=== PATIENT | male | born 1940 | race Caucasian/White ===

== ENCOUNTER 2024-07-23 06:23 | Day surgery (SDC) | payer OTHER ==
--- NOTE | 2024-07-21 14:30 | RAD REPORT ---
EXAMINATION: TWO VIEW CHEST XR CLINICAL INDICATION: Male, 84 years old. pre op pending hernia repair. [facility] pre op pending hernia repair TECHNIQUE: 2 views of the chest was performed. COMPARISON: No prior exam. FINDINGS: The lungs are hyperexpanded suggesting COPD. The heart is normal in size. No displaced fractures evid ent. IMPRESSION: COPD is suspected without acute finding identified.
--- NOTE | 2024-07-22 10:27 | EKG ---
Test Date: 2024-07-21 Test Time: 13:52:36 Director Software: JILL MEASUREMENT RESULTS: Intervals: Rate: 70 PA: 164 QRSD: 74 QT: 380 QTc: 410 [place]: P: 74 PA: 164 QRS: 51 T: 79 INTERPRETIVE STATEMENTS: Normal sinus rhythm Normal ECG Compared to ECG 10/24/2007 05:52:24 No significant changes Electronically Signed On 07-22-24 10:24:13 CDT by Tristan Mcgarry
[2024-07-23] MEDS ORDERED: Ringers Lactate 1,000 ML IV ONE (06:34)
[2024-07-23] MEDS ORDERED: CEFAZOLIN SODIUM 2 GM/VIAL ONE (06:34)
[2024-07-23] MEDS ORDERED: GLYCOPYRROLATE 0.2 MG/ML SYR ONE (07:04)
[2024-07-23] MEDS ORDERED: LIDOCAINE 2% MPF 5 ML VIAL ONE (07:04)
[2024-07-23] MEDS ORDERED: propofoL 200 MG/20 ML VIAL IV ONE (07:04)
[2024-07-23] MEDS ORDERED: NEOSTIGMINE 1 MG/ML -10 ML VIAL ONE (07:04)
[2024-07-23] MEDS ORDERED: ONDANSETRON 4 MG/2 ML VIAL ONE (07:04)
[2024-07-23] MEDS ORDERED: FENTANYL CITR 100 MCG/2 ML ONE (07:04)
[2024-07-23] MEDS ORDERED: ROCURONIUM 50 MG/5 ML VIAL IV ONE (07:05)
[2024-07-23] MEDS ORDERED: MIDAZOLAM HCL 2 MG/2 ML INJ ONE (07:05)
[2024-07-23] MEDS ORDERED: EPHEDRINE SULF 50 MG/ML VIAL ONE (08:10)
--- NOTE | 2024-07-23 08:52 | P.OP ---
Date of Service: 07/23/24 Preop diagnosis: Right inguinal hernia Postop diagnosis: Same Procedure performed: Repair of right renal hernia with Marlex mesh Surgeon: Fab Mcintyre MD Tower Loader Operator: None Estimated blood loss: Minimal Specimen: Hernia sac Findings: Right indirect and direct inguinal hernia Anesthesia: General Complications: None Drains: None Fluids and blood products: Nonapplicable Disposition: Recovery room Operative note: Patient brought to the OR and placed in supine position. General anesthesia began. Patient prepped and draped in usual sterile fashion. Marcaine 0.5% infiltrated in a field block fashion. 15 blade used to make a 4 cm oblique incision between the pubic tubercle and the anterior iliac superior spine. Subcutaneous tissue divided and bleeding controlled cautery. Jonathan's fascia identified and divided. Aponeurosis of the external abdominal oblique identified and mobilized inferiorly to expose the shelving edge. Aponeurosis opened through the external ring. Ilioinguinal nerve identified and retracted as a field of dissection. Cord mobilized at the pubic tubercle and skeletonized. A large hernia sac identified. Hernia sac dissected free from the cord structures with sharp and blunt dissection. High ligation of the hernia sac done with 2-0 Prolene suture ligature and freehand tie. Specimen sent to pathology. Patient had a direct hernia as well with weakening of the inguinal floor. This was reconstructed by using 2-0 Prolene starting at the pubic tubercle and joining the shelving edge to the conjoined tendon to create a new internal ring. Marlex mesh plug placed in the internal ring and secured with Sorbi tack. Onlay mesh placed in the inguinal floor secured medially to the pubic tubercle, superior to the conjoined tendon, inferior to the shelving edge and laterally to each other. Ilioinguinal nerve and cord sections placed back in anatomic location. Aponeurosis closed with 2-0 Prolene suture. Jonathan's fascia closed with 3-0 chromic. [place] used to close skin. Sterile dressing applied and patient awakened. Patient taken to recovery room in good general condition. CC: Dr. Pleitez's office
[2024-07-23 09:08] VITALS: O2SAT 99
[2024-07-23 09:50] VITALS: BP 119/60; TEMP 97.5
[2024-07-23] MEDS: HYDROCODONE/APAP 7.5/325 MG TAB ONE (10:36)
[2024-07-23] MEDS ORDERED: TAMSULOSIN 0.4 MG SR CAP ONE (12:40)
[2024-07-23] MEDS: TAMSULOSIN 0.4 MG SR CAP PO SCH (12:47)
== END 2024-07-23 14:19 | disposition home or self-care (01) ==
LOC: OR 06:23
PROVIDERS: ATTEND Surgery
PROC: 0YU50JZ Supplement Right Inguinal Region with Synthetic Substitute, Open Approach (ICD-10-PCS; principal; 2024-07-23 07:30)
DX: K40.90 Unilateral inguinal hernia, without obstruction or gangrene, not specified as recurrent (principal)
CPT/HCPCS: 93005; 88302; 71046; 49505; J2704; J2710; J2001; J3010; J2405; J7120; J2250